=== PATIENT | male | born 1990 | race Asian ===

== ENCOUNTER 2019-03-09 10:09 | Emergency (ER) | payer SELFPAY ==
[~2019-03-09] VITALS: Ht 172.7 cm; Wt 80.0 kg
[2019-03-09 10:19] VITALS: BP 132/85
== END 2019-03-09 11:53 | disposition home or self-care (01) ==
LOC: ER 10:54
DX: J06.9 Acute upper respiratory infection, unspecified (principal); F12.10 Cannabis abuse, uncomplicated; A74.9 Chlamydial infection, unspecified
CPT/HCPCS: 87070; 87430; 99283